=== PATIENT | female | born 1955 | race Hispanic/Latino ===

== ENCOUNTER 2020-05-07 14:31 | Inpatient (IN) | payer OTHER ==
[~2020-05-07] VITALS: Ht 160 cm; Wt 75.8 kg
[2020-05-07] MEDS ORDERED: ACETAMINOPHEN EXTRA STRENGTH 500 MG TABLET ONE (15:35)
[2020-05-07] MEDS ORDERED: CEFTRIAXONE SODIUM 1 GM ONE (16:30)
[2020-05-07] MEDS ORDERED: AZITHROMYCIN 250 MG TABLET PO ONE (16:31)
[2020-05-07] MEDS ORDERED: OSELTAMIVIR PHOSPHATE 75 MG CAP ONE (17:19)
[2020-05-07] MEDS: INSULIN HUMULIN R 100 UNIT/ML 3ML SQ SCH ×2 (17:30→23:30)
[2020-05-07] MEDS ORDERED: SODIUM CHLORIDE 0.9% 1000ML 1,000 ML IV SCH (17:30)
[2020-05-07] MEDS: OSELTAMIVIR PHOSPHATE 75 MG CAP PO SCH (18:00)
[2020-05-07] MEDS: CEFTRIAXONE SODIUM 1 GM IVP SCH (21:00)
[2020-05-08] MEDS ORDERED: CEFTRIAXONE SODIUM 1 GM ONE ×2 (05:08→17:31)
[2020-05-08] MEDS ORDERED: OSELTAMIVIR PHOSPHATE 75 MG CAP ONE ×2 (05:09→17:32)
[2020-05-08] MEDS ORDERED: SODIUM CHLORIDE 0.9% 100 ML IV ONE (05:09)
[2020-05-08] MEDS: INSULIN HUMULIN R 100 UNIT/ML 3ML SQ SCH ×4 (05:30→23:30)
[2020-05-08] MEDS ORDERED: ACETAMINOPHEN-CODEINE 300/30MG TAB PO PRN (05:45)
[2020-05-08] MEDS ORDERED: ENOXAPARIN SODIUM 40 MG/0.4 ML SYRINGE SQ ONE (07:52)
[2020-05-08] MEDS ORDERED: FAMOTIDINE 20MG TAB 20 MG TAB ONE (07:52)
[2020-05-08] MEDS ORDERED: METHYLPREDNISOLONE SOD SUCC 40MG/ML 1ML ONE (07:53)
[2020-05-08] MEDS ORDERED: INSULIN HUMULIN R 100 UNIT/ML 3ML ONE ×3 (07:55→17:33)
[2020-05-08] MEDS: METHYLPREDNISOLONE SOD SUCC 40MG/ML 1ML IVP SCH ×2 (09:00→21:00)
[2020-05-08] MEDS: INSULIN GLARGINE 100 UNITS/ML 10 ML VIAL SQ SCH (09:00)
[2020-05-08] MEDS ORDERED: ENOXAPARIN SODIUM 30 MG/0.3 ML SQ SCH (09:00)
[2020-05-08] MEDS: FAMOTIDINE 20MG TAB 20 MG TAB PO SCH (09:00)
[2020-05-08] MEDS: AZITHROMYCIN 250 MG TABLET PO SCH (09:00)
[2020-05-08] MEDS: CEFTRIAXONE SODIUM 1 GM IVP SCH ×2 (09:00→21:00)
[2020-05-08] MEDS ORDERED: ACETAMINOPHEN 325 MG TAB ONE (10:47)
[2020-05-08] MEDS ORDERED: IOHEXOL-350 75 ML VIAL IV ONE (14:38)
[2020-05-08] MEDS ORDERED: AZITHROMYCIN 250 MG TABLET PO ONE (17:35)
[2020-05-08] MEDS: OSELTAMIVIR PHOSPHATE 75 MG CAP PO SCH (18:00)
[2020-05-09] MEDS ORDERED: METHYLPREDNISOLONE SOD SUCC 40MG/ML 1ML ONE ×2 (00:30→17:14)
[2020-05-09] MEDS ORDERED: FAMOTIDINE 20MG TAB 20 MG TAB ONE (00:31)
[2020-05-09] MEDS: INSULIN HUMULIN R 100 UNIT/ML 3ML SQ SCH ×4 (05:30→23:30)
[2020-05-09] MEDS ORDERED: CEFTRIAXONE SODIUM 1 GM ONE ×2 (05:39→17:14)
[2020-05-09] MEDS ORDERED: OSELTAMIVIR PHOSPHATE 75 MG CAP ONE ×2 (05:40→17:15)
[2020-05-09] MEDS: AZITHROMYCIN 250 MG TABLET PO SCH (09:00)
[2020-05-09] MEDS: CEFTRIAXONE SODIUM 1 GM IVP SCH ×2 (09:00→21:00)
[2020-05-09] MEDS: INSULIN GLARGINE 100 UNITS/ML 10 ML VIAL SQ SCH (09:00)
[2020-05-09] MEDS: FAMOTIDINE 20MG TAB 20 MG TAB PO SCH (09:00)
[2020-05-09] MEDS: METHYLPREDNISOLONE SOD SUCC 40MG/ML 1ML IVP SCH ×2 (09:00→21:00)
[2020-05-09] MEDS ORDERED: ENOXAPARIN SODIUM 40 MG/0.4 ML SYRINGE SQ SCH (10:30)
[2020-05-09] MEDS ORDERED: ENOXAPARIN SODIUM 40 MG/0.4 ML SYRINGE SQ ONE (10:57)
[2020-05-09] MEDS ORDERED: ACETAMINOPHEN 325 MG TAB ONE (16:57)
[2020-05-09] MEDS ORDERED: ACETAMINOPHEN-CODEINE 300/30MG TAB ONE (16:57)
[2020-05-09] MEDS ORDERED: AZITHROMYCIN 250 MG TABLET PO ONE (17:14)
[2020-05-09] MEDS: OSELTAMIVIR PHOSPHATE 75 MG CAP PO SCH (18:00)
[2020-05-10] MEDS: INSULIN HUMULIN R 100 UNIT/ML 3ML SQ SCH ×4 (05:30→23:30)
[2020-05-10] MEDS ORDERED: CEFTRIAXONE SODIUM 1 GM ONE ×2 (06:50→15:53)
[2020-05-10] MEDS ORDERED: OSELTAMIVIR PHOSPHATE 75 MG CAP ONE ×2 (06:51→15:55)
[2020-05-10] MEDS: CEFTRIAXONE SODIUM 1 GM IVP SCH ×2 (09:00→21:00)
[2020-05-10] MEDS: METHYLPREDNISOLONE SOD SUCC 40MG/ML 1ML IVP SCH ×2 (09:00→21:00)
[2020-05-10] MEDS: INSULIN GLARGINE 100 UNITS/ML 10 ML VIAL SQ SCH (09:00)
[2020-05-10] MEDS: FAMOTIDINE 20MG TAB 20 MG TAB PO SCH (09:00)
[2020-05-10] MEDS: ENOXAPARIN SODIUM 40 MG/0.4 ML SYRINGE SQ SCH (09:00)
[2020-05-10] MEDS: AZITHROMYCIN 250 MG TABLET PO SCH (09:00)
[2020-05-10] MEDS ORDERED: METHYLPREDNISOLONE SOD SUCC 40MG/ML 1ML ONE ×2 (10:22→21:13)
[2020-05-10] MEDS ORDERED: ENOXAPARIN SODIUM 40 MG/0.4 ML SYRINGE SQ ONE (10:22)
[2020-05-10] MEDS ORDERED: FAMOTIDINE 20MG TAB 20 MG TAB ONE ×2 (13:46→21:14)
[2020-05-10] MEDS ORDERED: AZITHROMYCIN 250 MG TABLET PO ONE (15:54)
[2020-05-10] MEDS ORDERED: SODIUM CHLORIDE 0.9% 50 ML IV ONE (15:56)
[2020-05-10] MEDS: OSELTAMIVIR PHOSPHATE 75 MG CAP PO SCH (18:00)
[2020-05-10] MEDS ORDERED: INSULIN HUMULIN R 100 UNIT/ML 3ML ONE (21:14)
[2020-05-11] MEDS: INSULIN HUMULIN R 100 UNIT/ML 3ML SQ SCH ×4 (05:30→23:30)
[2020-05-11] MEDS: INSULIN GLARGINE 100 UNITS/ML 10 ML VIAL SQ SCH (09:00)
[2020-05-11] MEDS: AZITHROMYCIN 250 MG TABLET PO SCH (09:00)
[2020-05-11] MEDS: CEFTRIAXONE SODIUM 1 GM IVP SCH ×2 (09:00→21:00)
[2020-05-11] MEDS: ENOXAPARIN SODIUM 40 MG/0.4 ML SYRINGE SQ SCH (09:00)
[2020-05-11] MEDS: FAMOTIDINE 20MG TAB 20 MG TAB PO SCH (09:00)
[2020-05-11] MEDS: METHYLPREDNISOLONE SOD SUCC 40MG/ML 1ML IVP SCH ×2 (09:00→21:00)
[2020-05-11] MEDS ORDERED: FAMOTIDINE 20MG TAB 20 MG TAB ONE (09:29)
[2020-05-11] MEDS ORDERED: ENOXAPARIN SODIUM 40 MG/0.4 ML SYRINGE SQ ONE (09:29)
[2020-05-11] MEDS ORDERED: AZITHROMYCIN 250 MG TABLET PO ONE (09:31)
[2020-05-11] MEDS ORDERED: OSELTAMIVIR PHOSPHATE 75 MG CAP ONE ×2 (09:31→21:55)
[2020-05-11] MEDS ORDERED: CEFTRIAXONE SODIUM 1 GM ONE (09:32)
[2020-05-11] MEDS ORDERED: SODIUM CHLORIDE 0.9% 100 ML IV ONE (09:32)
[2020-05-11] MEDS ORDERED: METHYLPREDNISOLONE SOD SUCC 125MG/2ML VIAL ONE (11:10)
[2020-05-11] MEDS: OSELTAMIVIR PHOSPHATE 75 MG CAP PO SCH (18:00)
[2020-05-12 04:00] VITALS: BP_SYST 106; BP_SYST 109; BP_DIAS 66; BP_DIAS 88; PULSE 68; RESP 21; TEMP 97.7
[2020-05-12] MEDS: INSULIN HUMULIN R 100 UNIT/ML 3ML SQ SCH ×4 (06:36→20:46)
[2020-05-12 08:00] VITALS: BP 143/79; PULSE 53; RESP 20; TEMP 97.8
--- NOTE | 2020-05-12 08:10 | NUR ---
ENCOUNTERED PATIENT LAYING ON BED WITH NO COMPLAINTS OF SOB NOR PAIN. MAINTAINED ENHANCED ISOLATION FOR POSITIVE COVID-19. PATIENT IS ON ROOM AIR AND VOICED THAT SHE IS ABLE TO AMBULATE WITHOUT BEING DYSPNEIC. FULL ASSESSMENT DONE. CALL LIGHT WITHIN REACH. INSTRUCTED TO CALL FOR ASSISTANCE.
[2020-05-12] MEDS ORDERED: HYDRALAZINE HCL 20 MG/ML VIAL IV PRN (08:15)
[2020-05-12] MEDS: FAMOTIDINE 20MG TAB 20 MG TAB PO SCH (09:00)
[2020-05-12] MEDS ORDERED: POTASSIUM CHLORIDE 20 MEQ ERTAB PO ONE ×2 (09:25)
[2020-05-12] MEDS: METHYLPREDNISOLONE SOD SUCC 40MG/ML 1ML IVP SCH (09:28)
[2020-05-12] MEDS: CEFTRIAXONE SODIUM 1 GM IVP SCH ×2 (09:28→20:40)
[2020-05-12] MEDS: ENALAPRIL MALEATE 5 MG TAB PO SCH (09:28)
[2020-05-12] MEDS: INSULIN GLARGINE 100 UNITS/ML 10 ML VIAL SQ SCH (09:29)
[2020-05-12] MEDS: ENOXAPARIN SODIUM 40 MG/0.4 ML SYRINGE SQ SCH (09:29)
[2020-05-12] MEDS: AZITHROMYCIN 250 MG TABLET PO SCH (09:29)
[2020-05-12] MEDS: GLIPIZIDE 5 MG TABLET PO SCH ×2 (12:29→16:39)
[2020-05-12 13:45] VITALS: BP 152/67; PULSE 65; RESP 20; TEMP 98.1
[2020-05-12 16:00] VITALS: BP 147/73; PULSE 51; RESP 20; TEMP 98.3
--- NOTE | 2020-05-12 16:00 | NUR ---
DR. PENN IS MAKING HIS ROUNDS. MD VISH GROVER.
--- NOTE | 2020-05-12 17:57 | NUR ---
cm note pt resides at home alone, independent with adls /ambulation, no dme, no services dc plan is back home at dc. no dc needs. Addendum: 05/12/20 at 1801 by ANITA COHEN CM Amended: Links added.
[2020-05-12] MEDS ORDERED: POTASSIUM CHLORIDE 20MEQ/100ML 100 ML IV PRN (18:45)
[2020-05-12] MEDS ORDERED: POTASSIUM CHLORIDE 10% ELIXIR 20 MEQ/15 ML UDCUP PO PRN (18:45)
[2020-05-12] MEDS ORDERED: POTASSIUM CHLORIDE 20 MEQ ERTAB PO PRN (18:45)
[2020-05-12] MEDS ORDERED: LIDOCAINE HCL-MPF 1% 2ML VIAL IV PRN (18:45)
[2020-05-12 19:23] VITALS: BP 166/75; PULSE 54; RESP 18; TEMP 98.2
[2020-05-12] MEDS ORDERED: ATORVASTATIN CALCIUM 10 MG TABLET PO SCH (21:00)
[2020-05-12 23:02] VITALS: BP 173/70; PULSE 55; RESP 18; TEMP 97.5
[2020-05-13 03:48] VITALS: BP 152/73; PULSE 52; RESP 18; TEMP 97.5
[2020-05-13] MEDS: GLIPIZIDE 5 MG TABLET PO SCH (06:06)
[2020-05-13] MEDS: INSULIN HUMULIN R 100 UNIT/ML 3ML SQ SCH (06:40)
[2020-05-13 08:21] VITALS: BP 140/66; PULSE 50; RESP 20; TEMP 98.1
[2020-05-13] MEDS: CEFTRIAXONE SODIUM 1 GM IVP SCH (08:48)
[2020-05-13] MEDS: FAMOTIDINE 20MG TAB 20 MG TAB PO SCH (08:49)
[2020-05-13] MEDS: ENALAPRIL MALEATE 5 MG TAB PO SCH (08:49)
[2020-05-13] MEDS: AZITHROMYCIN 250 MG TABLET PO SCH (08:49)
[2020-05-13] MEDS: ENOXAPARIN SODIUM 40 MG/0.4 ML SYRINGE SQ SCH (08:49)
[2020-05-13] MEDS: INSULIN GLARGINE 100 UNITS/ML 10 ML VIAL SQ SCH (08:51)
--- NOTE | 2020-05-13 11:09 | NUR ---
DISCHARGE INSTRUCTIONS/INFORMATION GIVEN TO PATIENT. TEACH BACK METHOD USED TO EDUCATE PATIENT ON NEW MEDS PRESCRIBED, S/S TO MONITOR FOR, WHEN TO CALL MD, AND FOLLOW UP APPOINTMENTS. INSTRUCTED PATIENT TO CONTINUE SELF ISOLATION FOR ANOTHER 14 DAYS. PATIENT AGREED TO FOLLOW CDC GUIDELINES FOR PREVENTING SPREAD OF COVID-19. PIV REMOVED. TIP WAS INTACT. TELE PACK REMOVED AND RETURNED. ALL BELONGINGS WERE PACKED. NEW MEDS WERE TRANSMITTED TO PREFERRED PHARMACY.
== END 2020-05-13 11:50 | disposition home or self-care (01) | DRG 177 ==
LOC: EDH 14:31 → EDHIP 17:20 → OBSVTOIN 17:20 → 2AH 05-12 04:07
PROVIDERS: ADMIT Internal Medicine; ATTEND Internal Medicine
DX: U07.1 COVID-19 (principal); J11.08 Influenza due to unidentified influenza virus with specified pneumonia; J96.01 Acute respiratory failure with hypoxia; J18.8 Other pneumonia, unspecified organism; N17.9 Acute kidney failure, unspecified; N39.0 Urinary tract infection, site not specified; E11.65 Type 2 diabetes mellitus with hyperglycemia; E66.9 Obesity, unspecified; E78.5 Hyperlipidemia, unspecified; I10 Essential (primary) hypertension; Z68.29 Body mass index [BMI] 29.0-29.9, adult